=== PATIENT | male | born 1980 | race American Indian/Alaskan Native ===

== ENCOUNTER 2019-09-11 20:06 | Emergency (ER) | payer SELFPAY ==
[2019-09-11 20:22] VITALS: BP 131/93
--- NOTE | 2019-09-11 20:40 | Emergency Department Report ---
HPI - General Chief Complaint: Dental/Oral Time Seen by Provider: 09/11/19 20:40 - HPI HPI: 39-year-old male here report that he has abscess to the roof of his mouth. He said this is been going on for a week and he is having pain 5/10. He does not have a dentist. He has had similar incident in the past but he said it went away. Patient reports that is draining pus. He reports chills. Pain is throbbing and constant. Took [id number] pain medication with no relief. Denies any sore throats or drooling. Denies any cough, shortness of breath or chest pain. Denies any neck pain or stiffness. Denies any upper respiratory symptoms. Denies any headache. ED Past Medical Hx - Past Medical History Previous Medical History?: No - Surgical History Past Surgical History?: No - Family History Family history: no significant - Social History Smoking Status: Current Every Day Smoker Substance Use Type: Alcohol, Marijuana - Medications Home Medications: Home Medications Medication Instructions Recorded Confirmed Last Taken Type Acetaminophen/Codeine [Tylenol 1 tab PO Q6H PRN #12 tab 09/11/19 Unknown Rx /Codeine # 3 tab] Ibuprofen [Motrin] 800 mg PO Q8HR PRN #12 tablet 09/11/19 Unknown Rx Penicillin V Potassium 500 mg PO Q8H 10 Days #30 tablet 09/11/19 Unknown Rx ED Review of Systems ROS: Stated complaint: TOOTH INFECTION/GUM Other details as noted in HPI Constitutional: chills. denies: malaise, weakness Eyes: denies: eye discharge ENT: dental pain, other (Abscess). denies: ear pain, throat pain, congestion Respiratory: denies: cough, shortness of breath, SOB with exertion, SOB at rest, wheezing Cardiovascular: denies: chest pain, palpitations, edema, syncope Gastrointestinal: denies: nausea, vomiting Musculoskeletal: denies: back pain, joint swelling, arthralgia, myalgia Skin: denies: rash Neurological: denies: headache, vertigo Physical Exam - Physical Exam Vital Signs: Vital Signs 09/11/19 20:13 Temperature 101.9 F H Pulse Rate 111 H Respiratory 20 Rate Blood Pressure 131/93 O2 Sat by Pulse 99 Oximetry General: This is a 39-year-old male well-nourished well-developed in no acute distress. Patient is nontoxic in appearance Physical Exam: Head: Normocephalic atraumatic Ears:BIateral TM pearly magallanes . Davide EAC with normal exam. No mastoid bone tenderness. Mouth: Moist, no pharyngeal erythema or exudate . Tongue is normal and oral airways patent. Uvula is midline. Indurated area noted to hard palate. Tender to palpate with pus draining. dental cavities to several teeth without any pulp exposure. Lip is normal. Neck: Nontender to palpate, supple, normal range of motion. No adenopathy. No c- spine tenderness. Nose: Bilateral nasal mucosa normal exam maxillary and frontal sinuses non- tender to palpate. Eyes: Bilateral Sclerae and conjunctiva without injection. Bilateral pupils equal and reactive to light. Bilateral lids are normal. Normal accommodation.BEOMI Lungs: Clear to auscultate bilaterally, no rhonchi wheezes or rales. Normal work of breathing and no chest wall tenderness CV: S1, S2. Regular rate and rhythm negative murmur. Capillary refill is less than 3 seconds Abdomen: Nontender to palpation in all quadrants: No guarding or rebound tenderness. Positive bowel sounds in all quadrants Extremity: No clubbing, cyanosis or edema. +2 pulses in all extremities and no neurovascular compromise Skin: Clean dry and intact, no rashes or lesions ED Course Vital Signs 09/11/19 20:13 Temperature 101.9 F H Pulse Rate 111 H Respiratory 20 Rate Blood Pressure 131/93 O2 Sat by Pulse 99 Oximetry Vital Signs 09/11/19 09/11/19 09/11/19 20:13 21:16 21:23 Temperature 101.9 F H 99.3 F Pulse Rate 111 H 88 Respiratory 20 18 17 Rate Blood Pressure 131/93 O2 Sat by Pulse 99 99 Oximetry - Reevaluation(s) Reevaluation #1: 09/11/19 21:08 Patient received Motrin 800 mg p.o. and started on penicillin 500 mg p.o. he is stable and in no acute distress. Will recheck vital signs prior to discharge Reevaluation #2: 09/11/19 21:24 Patient stable. Received Motrin and penicillin in the emergency room. Vital signs stable and temperature has went down. ED Medical Decision Making - Medical Decision Making This is a 39-year-old male well-nourished well-developed and here for abscess to the roof of his mouth. Patient was found to have oral abscess with drainage. Abscess to roof of mouth is already draining. Vital signs stable, temperature is improved below 100. Patient received Motrin and penicillin emergency room. He is able to tolerate fluids. Patient discharged home with prescription for Motrin, Tylenol 3 and penicillin and to follow-up with [facility] in 2 to 3 days. I discussed with him that he needs to call to schedule an appointment for follow-up visit for dental abscess and he voiced understanding. Critical care attestation.: If time is entered above; I have spent that time in minutes in the direct care of this critically ill patient, excluding procedure time. ED Disposition Clinical Impression: Oral abscess Disposition: TO HOME OR SELFCARE Is pt being admited?: No Does the pt Need Aspirin: No Condition: Stable Instructions: Dental Abscess (ED), Fever in Adults (ED) Additional Instructions: Please follow-up with [facility] as instructed. See address and phone number and discharge instruction paperwork. Please call to schedule an appointment to follow-up with dentist. If your condition worsens, return to the emergency room Take Motrin for pain and fever but take this medication with food as it can cause upset stomach Take Tylenol 3 for severe pain and please do not drive or operate heavy machinery while taking this medication as a cause drowsiness Gargle with warm salt water Take penicillin antibiotic as discussed Referrals: [facility] [Outside] - 2-3 Days
[2019-09-11] MEDS ORDERED: IBUPROFEN 800 MG TAB PO ONE (20:41)
[2019-09-11] MEDS ORDERED: PENICILLIN V POTASSIUM 250 MG TAB PO ONE (21:00)
== END 2019-09-11 21:30 | disposition home or self-care (01) ==
LOC: ED 20:06
DX: L02.818 Cutaneous abscess of other sites (principal); F12.90 Cannabis use, unspecified, uncomplicated; F17.200 Nicotine dependence, unspecified, uncomplicated; Z79.899 Other long term (current) drug therapy
CPT/HCPCS: 99282